=== PATIENT | male | born 1965 | race Caucasian/White ===

== ENCOUNTER 2019-09-23 13:32 | Outpatient (CLI) | payer MEDICARE ==
[~2019-09-23 13:32] MED LIST: ATEN-104 PO; HYDR-3240 PO; NAPR-856 PO; TIZA4CAP2 PO
== END 2019-09-23 23:59 | disposition home or self-care (01) ==
LOC: CARD 13:32
PROVIDERS: ATTEND Physician Assistant
DX: I47.1 Supraventricular tachycardia (principal); I49.3 Ventricular premature depolarization
CPT/HCPCS: 93225; 93226